=== PATIENT | female | born 1975 | race Caucasian/White ===

== ENCOUNTER 2016-09-21 16:23 | Emergency (ER) | payer MEDICAID ==
[~2016-09-21] VITALS: Ht 154.9 cm; Wt 90.7 kg
== END 2016-09-21 19:10 | disposition short-term general hospital (02) ==
LOC: ER 16:23
DX: G43.909 Migraine, unspecified, not intractable, without status migrainosus (principal); Z88.0 Allergy status to penicillin; Z79.899 Other long term (current) drug therapy
CPT/HCPCS: J1170; J1885; J2405